=== PATIENT | female | born 1985 | race Hispanic/Latino ===

== ENCOUNTER 2020-09-28 15:23 | Emergency (ER) | payer MEDICAID, OTHER ==
[~2020-09-28] VITALS: Ht 157.5 cm; Wt 64.4 kg
[2020-09-28 15:25] VITALS: BP 141/80
[2020-09-28 16:42] VITALS: BP 135/74
== END 2020-09-28 18:07 | disposition home or self-care (01) ==
LOC: EDH 15:23
DX: M54.9 Dorsalgia, unspecified (principal); Z53.21 Procedure and treatment not carried out due to patient leaving prior to being seen by health care provider